=== PATIENT | female | born 1945 | race Caucasian/White ===

== ENCOUNTER → 2017-04-14 | Outpatient (CLI) | payer OTHER, MEDICARE ==
[~2017-04-14] MED LIST: ASPIRIN325 PO; CO Q-1010 MG PO; CRESTOR20 MG PO; FISHOIL PO; LISINOPRIL10 MG PO; LISINOPRIL2.5 MG PO; LORTAB 5 MG/5001 TAB PO; MULTIVITAMINS PO; PERCOCET 5-3251 EACH PO; PHISOHEX148 ML TOP; TOPROL XL25 MG PO
== END ==
LOC: RAD 14:18
DX: Z12.31 Encounter for screening mammogram for malignant neoplasm of breast (principal)

== ENCOUNTER → 2017-06-21 | Outpatient (CLI) | payer OTHER, MEDICARE | LOC: NUC 13:15 | DX: M85.88 Other specified disorders of bone density and structure, other site (principal); I10 Essential (primary) hypertension; Z72.0 Tobacco use; Z78.0 Asymptomatic menopausal state ==

== ENCOUNTER → 2017-12-16 | Outpatient (CLI) | payer OTHER, MEDICARE | LOC: NUC 07:50 | DX: I25.10 Atherosclerotic heart disease of native coronary artery without angina pectoris (principal); I10 Essential (primary) hypertension; E78.5 Hyperlipidemia, unspecified; Z87.891 Personal history of nicotine dependence ==

== ENCOUNTER → 2018-04-19 | Outpatient (CLI) | payer OTHER, MEDICARE | LOC: RAD 01:20 | DX: Z12.31 Encounter for screening mammogram for malignant neoplasm of breast (principal) ==

== ENCOUNTER → 2019-05-31 | Outpatient (CLI) | payer OTHER, MEDICARE | LOC: BC 05-30 16:23 | DX: Z12.31 Encounter for screening mammogram for malignant neoplasm of breast (principal) ==

== ENCOUNTER → 2020-02-21 | Outpatient (CLI) | payer OTHER, MEDICARE | LOC: SJCVC 13:06 | PROVIDERS: ATTEND Internal Medicine Cardiovascular Disease | DX: I25.10 Atherosclerotic heart disease of native coronary artery without angina pectoris (principal); I10 Essential (primary) hypertension; E78.00 Pure hypercholesterolemia, unspecified ==

== ENCOUNTER → 2020-06-06 | Outpatient (CLI) | payer OTHER, MEDICARE | LOC: BC 10:35 | PROVIDERS: ATTEND Internal Medicine | DX: Z12.31 Encounter for screening mammogram for malignant neoplasm of breast (principal) ==

== ENCOUNTER → 2020-09-30 | Outpatient (CLI) | payer OTHER, MEDICARE | LOC: RAD 13:31 | PROVIDERS: ATTEND Internal Medicine | DX: J84.10 Pulmonary fibrosis, unspecified (principal); M85.80 Other specified disorders of bone density and structure, unspecified site; R05 Cough; Z78.0 Asymptomatic menopausal state; Z87.891 Personal history of nicotine dependence ==

== ENCOUNTER → 2020-10-01 | Outpatient (CLI) | payer OTHER, MEDICARE | LOC: SJCVCIMAG | PROVIDERS: ATTEND Internal Medicine Cardiovascular Disease | DX: R00.0 Tachycardia, unspecified (principal); I49.3 Ventricular premature depolarization; I25.119 Atherosclerotic heart disease of native coronary artery with unspecified angina pectoris; I21.4 Non-ST elevation (NSTEMI) myocardial infarction; I10 Essential (primary) hypertension; E78.00 Pure hypercholesterolemia, unspecified; I42.9 Cardiomyopathy, unspecified; I73.9 Peripheral vascular disease, unspecified; Z95.1 Presence of aortocoronary bypass graft; E78.5 Hyperlipidemia, unspecified; Z88.8 Allergy status to other drugs, medicaments and biological substances; Z79.82 Long term (current) use of aspirin; Z79.899 Other long term (current) drug therapy; Z87.891 Personal history of nicotine dependence ==

== ENCOUNTER → 2021-04-04 | Outpatient (CLI) | payer OTHER, MEDICARE | LOC: SJCVCIMAG 14:07 | PROVIDERS: ATTEND Internal Medicine Cardiovascular Disease | DX: R94.31 Abnormal electrocardiogram [ECG] [EKG] (principal); I70.203 Unspecified atherosclerosis of native arteries of extremities, bilateral legs; I25.10 Atherosclerotic heart disease of native coronary artery without angina pectoris; I10 Essential (primary) hypertension; E78.00 Pure hypercholesterolemia, unspecified; I42.9 Cardiomyopathy, unspecified; Z88.8 Allergy status to other drugs, medicaments and biological substances; Z79.82 Long term (current) use of aspirin; Z79.899 Other long term (current) drug therapy; Z87.891 Personal history of nicotine dependence ==

== ENCOUNTER → 2021-04-16 | Outpatient (CLI) | payer OTHER, MEDICARE | LOC: SJCVCIMAG 13:43 → SJCVC 13:43 | PROVIDERS: ATTEND Nuclear Medicine Nuclear Cardiology | DX: I65.23 Occlusion and stenosis of bilateral carotid arteries (principal); R42 Dizziness and giddiness; E78.00 Pure hypercholesterolemia, unspecified; I10 Essential (primary) hypertension; I25.10 Atherosclerotic heart disease of native coronary artery without angina pectoris; I70.201 Unspecified atherosclerosis of native arteries of extremities, right leg; Z79.82 Long term (current) use of aspirin; Z79.899 Other long term (current) drug therapy; Z87.891 Personal history of nicotine dependence; Z88.8 Allergy status to other drugs, medicaments and biological substances ==

== ENCOUNTER → 2021-07-02 | Outpatient (CLI) | payer OTHER, MEDICARE | LOC: BC 11:55 | PROVIDERS: ATTEND Internal Medicine | DX: Z12.31 Encounter for screening mammogram for malignant neoplasm of breast (principal) ==